=== PATIENT | female | born 1975 | race Caucasian/White ===

== ENCOUNTER 2018-05-10 09:37 | Emergency (ER) | payer OTHER ==
--- NOTE | 2018-05-10 09:39 | EDPHY ---
H & P Time Seen by Provider: 05/10/18 09:39 HPI/ROS: CHIEF COMPLAINT: Chest pain dyspnea since 0830 this morning HISTORY OF PRESENT ILLNESS: 43-year-old female generally healthy, history of migraine headache, arrives via ambulance complaining of epigastric pain started approximately 30 this morning. She describes being at home working on her computer, drinking coffee, felt sudden onset of a dull ache in her epigastrium. This lasted approximately 10-15 min. She contacted her primary care provider' s office in the recommend she go to the ER. She then developed left upper extremity paresthesia. Ambulance showed no ST elevation, given aspirin EMS. Patient notes no chest pain or dyspnea with exertion. She went for a 1 hr hike yesterday and did not develop chest pain or dyspnea out of proportion to activity, did not need to prematurely cease activity. PRIMARY CARE PROVIDER: [facility] REVIEW OF SYSTEMS: 10 systems reviewed and negative with the exception of the elements mentioned in the history of present illness PAST MEDICAL & SURGICAL HISTORY: Cholecystectomy years ago. Migraine headache. SOCIAL HISTORY:Nonsmoker. No drug use. No cocaine use. No Oral contraceptive use or exogenous estrogen use. FAMILY HISTORY: no family history of premature coronary artery disease or sudden unexplained . PHYSICAL EXAM (Prior to examination, patient consented to physical exam, hands were washed and my usual and customary physical exam procedures followed) 1) GENERAL: Well-developed, well-nourished, alert and oriented. Appears anxious. 2) HEAD: Normocephalic, atraumatic 3) HEENT: Pupils equal, round, reactive to light bilaterally. Sclera anicteric. Nasopharynx, oropharynx, clear, no lesions. Moist Mucous membranes 4) NECK: Full range of motion, no meningeal signs. No carotid bruit 5) LUNGS: Clear auscultation bilaterally, no wheezes, no rhonchi, no retractions. 6) HEART: Regular rate and rhythm, no murmur, no heave, no gallop. 7) ABDOMEN: No guarding, no rebound, no focal tenderness, negative McBurney's, negative Almonte's, negative Rovsing's, negative peritoneal sign, 8) MUSCULOSKELETAL: Moving all extremities, no focal areas of tenderness, no obvious trauma. No peripheral edema or discoloration. Negative Homans, no palpable cord 9) BACK: No CVA tenderness, no midline vertebral tenderness, no fluctuance, no step-off, no obvious trauma, no visual or palpable abnormality. 10) SKIN: No rash, no petechiae. 11) Psychiatric: Patient is oriented X 3, there is no agitation. DIFFERENTIAL DIAGNOSIS: In no particular order, including but not limited to myocardial ischemia, pulmonary embolus, chest wall pain, pleural inflammation and pulmonary infectious causes. (Rodrick Segura) Constitutional: Initial Vital Signs Temperature (C) 36.9 C 05/10/18 09:37 Heart Rate 75 05/10/18 09:37 Respiratory Rate 16 05/10/18 09:37 Blood Pressure 160/91 H 05/10/18 09:37 O2 Sat (%) 100 05/10/18 09:37 O2 Delivery Mode Room Air Allergies/Adverse Reactions: No Known Drug Allergies Allergy (Verified 05/10/18 10:13) Medical Decision Making - Diagnostics EKG Interpretation: EKG: Complete interpretation has been separately recorded in the [facility] archive. Summary impression: Sinus rhythm, rate 67 (Dutch Nguyen) Imaging Results: Imaging Impressions Chest X-Ray 05/10/18 10:02 Impression: No acute findings in the chest. Images reviewed myself (Rodrick Segura) ED Course/Re-evaluation: 10:05 a.m.: Will obtain laboratory studies. Will hold on D-dimer as I have a low pretest suspicion for pulmonary embolus, negative perc score. Care of patient under supervision of primary Supervising physician Dr Nguyen with whom I discussed case. 10:39 a.m. Heart pathway score of 0. Feeling anxious at this time. Requesting anxiolytic 11:01 p.m.: Re-evaluation, received Ativan, feeling improvement. Regarding the patient's chest pain complaints I think that acute cardiac syndrome is less than likely this patient. In the patient can be discharged safely at this time. We discussed Heart pathway. She feels comfortable being discharged. My usual and customary discharge precautions instructions provided. (Rodrick Segura) Other Provider: PHYSICIAN DOCUMENTATION: The patient was evaluated and managed by the Physician Material Processor. My co- signature indicates that I have reviewed this chart and I agree with the findings and plan of care as documented. I am the secondary supervising physician. (Dutch Nguyen) - Data Points Laboratory Results: Laboratory Results 05/10/18 09:43 05/10/18 09:43 05/10/18 05/10/18 05/10/18 10:02 09:43 09:43 WBC RBC Hgb Hct MCV MCH MCHC RDW Plt Count MPV Neut % (Auto) Lymph % (Auto) Alger % (Auto) Eos % (Auto) Baso % (Auto) Nucleat RBC Rel Count Absolute Neuts (auto) Absolute Lymphs (auto) Absolute Monos (auto) Absolute Eos (auto) Absolute Basos (auto) Absolute Nucleated RBC Immature Gran % Immature Gran # Sodium 141 mEq/L mEq/L (135-145) Potassium 4.3 mEq/L mEq/L (3.5-5.2) Chloride 108 mEq/L mEq/L (97-110) Carbon Dioxide 23 mEq/l mEq/l (22-31) Anion Gap 10 mEq/L mEq/L (6-14) BUN 8 mg/dL mg/dL (7-23) Creatinine 0.7 mg/dL mg/dL (0.6-1.0) Estimated GFR > 60 Glucose 92 mg/dL mg/dL (70-100) Calcium 9.7 mg/dL mg/dL (8.5-10.4) Total Bilirubin Conjugated Bilirubin Unconjugated Bilirubin AST ALT Alkaline Phosphatase POC Troponin I 0.00 ng/mL ng/mL (0.00-0.08) Total Protein Albumin Lipase Beta HCG, Qual NEGATIVE 05/10/18 05/10/18 09:43 09:23 WBC 7.74 10^3/uL 10^3/uL (3.80-9.50) RBC 4.73 10^6/uL 10^6/uL (4.18-5.33) Hgb 14.3 g/dL g/dL (12.6-16.3) Hct 43.0 % % (38.0-47.0) MCV 90.9 fL fL (81.5-99.8) MCH 30.2 pg pg (27.9-34.1) MCHC 33.3 g/dL g/dL (32.4-36.7) RDW 12.8 % % (11.5-15.2) Plt Count 376 10^3/uL 10^3/uL (150-400) MPV 10.0 fL fL (8.7-11.7) Neut % (Auto) 44.8 % % (39.3-74.2) Lymph % (Auto) 41.0 % % (15.0-45.0) Alger % (Auto) 7.5 % % (4.5-13.0) Eos % (Auto) 5.6 % % (0.6-7.6) Baso % (Auto) 0.8 % % (0.3-1.7) Nucleat RBC Rel Count 0.0 % % (0.0-0.2) Absolute Neuts (auto) 3.48 10^3/uL 10^3/uL (1.70-6.50) Absolute Lymphs (auto) 3.17 10^3/uL H 10^3/uL (1.00-3.00) Absolute Monos (auto) 0.58 10^3/uL 10^3/uL (0.30-0.80) Absolute Eos (auto) 0.43 10^3/uL H 10^3/uL (0.03-0.40) Absolute Basos (auto) 0.06 10^3/uL 10^3/uL (0.02-0.10) Absolute Nucleated RBC 0.00 10^3/uL 10^3/uL (0-0.01) Immature Gran % 0.3 % % (0.0-1.1) Immature Gran # 0.02 10^3/uL 10^3/uL (0.00-0.10) Sodium Potassium Chloride Carbon Dioxide Anion Gap BUN Creatinine Estimated GFR Glucose Calcium Total Bilirubin 1.3 mg/dL mg/dL (0.1-1.4) Conjugated Bilirubin 0.2 mg/dL mg/dL (0.0-0.5) Unconjugated Bilirubin 1.1 mg/dL mg/dL (0.0-1.1) AST 25 IU/L IU/L (14-46) ALT 22 IU/L IU/L (9-52) Alkaline Phosphatase 74 IU/L IU/L (38-126) POC Troponin I Total Protein 7.8 g/dL g/dL (6.3-8.2) Albumin 4.8 g/dL g/dL (3.5-5.0) Lipase 84 IU/L IU/L (23-300) Beta HCG, Qual Medications Given: Discontinued Medications Al Hydroxide/Mg Hydroxide (Maalox Susp) 30 ml PO ONCE ONE Stop: 05/10/18 11:07 Last Admin: 05/10/18 11:12 Dose: 30 ml Hyoscyamine Sulfate (Levsin, Hyomax-Sl) 0.25 mg PO ONCE ONE Stop: 05/10/18 11:07 Last Admin: 05/10/18 11:12 Dose: 0.25 mg Lidocaine (Lidocaine 2% Viscous) 15 ml PO ONCE ONE Stop: 05/10/18 11:07 Last Admin: 05/10/18 11:12 Dose: 15 ml Lorazepam (Ativan Injection) 0.5 mg IVP EDNOW ONE Stop: 05/10/18 10:40 Last Admin: 05/10/18 10:43 Dose: 0.5 mg Point of Care Test Results: Chemistry 05/10/18 10:02 POC Troponin I 0.00 ng/mL ng/mL (0.00-0.08) Departure - Departure Disposition: Home, Routine, Self-Care Clinical Impression: Epigastric pain Condition: Good Instructions: Epigastric Pain (ED) Additional Instructions: Seek medical attention if you develop new or worsening chest pain, if you develop new or worsening shortness of breath, or any other symptoms that concern you. Referrals: Dania Ng MD [Medical Doctor] - 1-2 days without fail
[2018-05-10 10:09] LABS: PLATELET COUNT 376 10^3/uL (150-400)
--- NOTE | 2018-05-10 10:36 | CPEKG ---
Test Reason : OPEN Blood Pressure : / mmHG Vent. Rate : 067 BPM Atrial Rate : 066 BPM P-R Int : 156 ms QRS Dur : 095 ms QT Int : 408 ms P-R-T Axes : 041 065 042 degrees QTc Int : 431 ms Sinus rhythm Probable left ventricular hypertrophy Confirmed by Dutch Nguyen ([id number]) on 05/10/2018 10:35:32 AM Referred By: Confirmed By:Dutch Nguyen
[2018-05-10] MEDS ORDERED: LORazepam 2 MG/ML INJ IVP ONE (10:39)
[2018-05-10] MEDS ORDERED: HYOSCYAMINE SULFATE 0.125 MG TAB PO ONE (11:06)
[2018-05-10] MEDS ORDERED: MAG HYDROX/AL HYDROX/SIMETH 30 ML UDCUP PO ONE (11:06)
[2018-05-10] MEDS ORDERED: LIDOCAINE 2% VISCOUS 15 ML UDCUP PO ONE (11:06)
[2018-05-10 11:42] VITALS: BP 128/84
== END 2018-05-10 11:41 | disposition home or self-care (01) ==
LOC: EDUNIT#
DX: R10.13 Epigastric pain (principal); R20.2 Paresthesia of skin
CPT/HCPCS: 84484-PO; 96374; J2060